=== PATIENT | female | born 1985 | race Caucasian/White ===

== ENCOUNTER 2017-02-04 08:14 | Inpatient (IN) | payer OTHER ==
[~2017-02-04] VITALS: Ht 175.3 cm; Wt 121.6 kg
[~2017-02-04 08:14] MED LIST: Docusate Sodium PO; ESOM20CA28 PO; FERR-74 PO; Ibuprofen PO; PREN-57 PO
[2017-02-04] MEDS ORDERED: Lactated Ringer's 1,000 ML IV SCH ×2 (08:36→13:23)
[2017-02-04] MEDS ORDERED: Lactated Ringer's 500 ML IV ONE (08:36)
[2017-02-04] MEDS ORDERED: Atropine 1 mg/10 mL (Code) Syringe IVPUSH PRN (08:40)
[2017-02-04] MEDS ORDERED: fentaNYL 2 mCg/mL-Bupiv 0.125% 100 ML EPIDURAL SCH (08:40)
[2017-02-04] MEDS ORDERED: EPHEDrine Sulfate 50 mg/mL Inj IVPUSH PRN (08:40)
[2017-02-04] MEDS ORDERED: Ondansetron 2 mg/mL 2 mL Inj IVPUSH PRN (08:40)
[2017-02-04] MEDS ORDERED: Oxytocin 30 Units/500 mL LR Premix IV ONE (08:54)
--- NOTE | 2017-02-04 09:12 | PCM.HPANE ---
Patient Data Date of Service: Feb 04, 2017 Surgeon Admitting Provider:Yovany Saeed MD Attending Provider:Yovany Saeed MD Primary Care Physician:Yovany Saeed MD Other Provider:Sharon Jacobson Anesthesia Reason for Visit LABOR LABOR Ht/WT & BMI Height (Centimeters): 175 Weight (Kilograms): 121 Body Mass Index Allergies Coded Allergies: No Known Allergies (Unverified Allergy, Unknown, 03/08/14) Past Anesthesia History Anesthesia History: Denies:: Abnormal Airway, Anesthesia Reactions, Difficult Intubation, Fam Anesthesia Reaction, Fam Malignant Hypertherm, Malignant Hyperthermia Diabetes History Hx Diabetes?: No MRSA MRSA: No Medications Hypertension Medication: No Home Meds Incl Beta Diego: No Active Scripts Ferrous Sulfate (Feosol)325 Mg [id number] Mg PO DAILY #14 TABLET Prov:Soniya Reddy MD 04/16/14 [Ibuprofen] (Motrin)800 MG TABLET No Conflict [id number] Mg PO Q6H PRN For Pain # 30 TABLET Ref 1 Prov:Soniya Reddy MD 04/16/14 [Docusate Sodium] (Colace)100 MG CAPSULE No Conflict [id number] Mg PO BID PRN For Constipation #28 CAPSULE Ref 1 Prov:Soniya Reddy MD 04/16/14 Reported Medications Esomeprazole Magnesium (Nexium)20 Mg Capsule.dr20 Mg PO DAILY 30 Days Ref 0 04/14/14 Pnv No.118/Iron Fumarate/FA ( 19 Chewable Tablet)1 Each Tab.chew1 Each PO 04/14/14 History History of ENT Problems?: No HEENT History: Denies:: Abnormal Airway Cataracts Difficult Intubation Dysphagia Glaucoma Hearing Problem Sinus Problem TMJ Denture Type: None Teeth Condition: Within Normal Limits Hx of Heart Problems?: No Cardiovascular History: Denies:: AICD Abdominal Aortic Aneurism Atrial Fibrillation Cardiac Surgery Chest Pain Congestive Heart Failure Coronary Artery Disease Edema Heart Murmur Hypertension Irregular Heartbeat Pacemaker Peripheral Vascular Rheumatic Fever Thrombophlebitis Valvular Heart Disease Hx of Respiratory Problem?: Yes Respiratory History: Positive for:: Asthma Denies:: Tuberculosis Hx Neurologic Problems?: No Neurological History: Denies:: Alzheimer's Disease CVA Dementia Dizziness Headaches Multiple Sclerosis Parkinson's Disease Peripheral Neuropathy Seizures TIA Hx of GI Problems?: No Gastrointestinal History: Denies:: Cirrhosis Diverticulitis Gall Bladder Disease Gastroesphageal Reflux Gastrointestinal Bleeding Heartburn Hepatitis Hiatal Hernia Liver Disease Rectal Bleeding Hx of Problems?: No Female Hx: Positive for:: Currently Hx Musculoskeletal Problems?: No Hx of Psycho/Social Problems?: Yes Psycho Social History: Positive for:: Hx Depression Hx Surgeries?: Yes (Knee surgery) Hx Any Other Health Problems?: Yes Other History: Positive for:: Thyroid Disease Hx Diabetes: No Hx Alcohol Use: NoHx Substance Use: No Smoking Status: Never Smoker Have You Smoked inLast 12 mo: No Stop/Bang Risk Assessment Category Category 1A: Patient has history of documented sleep apnea, and HAS NOT received any narcotic, sedative or anesthesia administration during this stay. Category 1B: Patient has history of documented sleep apnea, and HAS received any narcotic , sedative or anesthesia administration during this stay Category 2: Patient has SUSPECTED Obstructive Sleep Apnea, and HAS received any narcotic , sedative or anesthesia administration during this stay. Category 3: Patient has SUSPECTED Obstructive Sleep Apnea and HAS NOT received narcotic, sedative or anesthesia administration during this stay. Category 4: Outpatient in Procedural Areas with known sleep apnea or who screen positive for High Risk via the STOP/BANG questionnaire. Exam Exam General Appearance: Alert, Oriented X3, Cooperative, Mild Distress HEENT/AIRWAY: MP 2 Lungs: Normal Air Movement Heart: Exam Unremarkable Plan Impression Patient chart reviewed, patient interviewed and anesthestic plan with risks, benefits, and alternatives discussed, and informed consent obtained. ASA Physical Status: ASA2 Mod Systemic Disease Anesthetic Plan: Epidural Bene/Risks/Altern/Consents: Yes HP Complete Prior to Induction: Yes Avi Gordon MD Feb 04, 2017 09:12
[2017-02-04 09:56] LABS: Mean Corpuscular Volume 76.9 fL (81-100)
[2017-02-04] MEDS ORDERED: Bupivacaine-MPF 0.5% 30 mL Inj ONE (12:58)
[2017-02-04] MEDS ORDERED: Benzocaine (Dermoplast) 20% 60 Gm Spray TOPICAL PRN (13:25)
[2017-02-04] MEDS ORDERED: Methylergonovine 0.2 mg/mL Inj IM PRN (13:25)
[2017-02-04] MEDS ORDERED: Oxytocin 30 Units/500 mL LR 30 UNITS in IV Premix 1 EACH IV PRN (13:25)
[2017-02-04] MEDS ORDERED: HYDROcodone-APAP 5-325 mg Tablet PO PRN (13:25)
[2017-02-04] MEDS ORDERED: Influenza (Adult) Vaccine 0.5 mL Syringe IM ONE (13:25)
[2017-02-04] MEDS ORDERED: Oxytocin 10 Unit/mL Inj IM PRN (13:25)
[2017-02-04] MEDS ORDERED: Carboprost 250 mCg/mL Inj IM PRN (13:25)
[2017-02-04] MEDS ORDERED: Witch Hazel-Glycerin Pads TOPICAL PRN (13:25)
[2017-02-04] MEDS ORDERED: Hemorrhage Kit, Post Partum XX ONE (13:25)
[2017-02-04] MEDS ORDERED: LANOlin HPA 7 Gm Ointment TOPICAL PRN (13:25)
--- NOTE | 2017-02-04 14:05 | PCM.ANEP1 ---
Post Anesthesia PACU Phase 1 Assessment Date of Service: Feb 04, 2017 Vital Signs VSS see nurses notes Anesthetic Administered: Epidural Level of Alertness: Awake, talking ORTIZ's with Equal Strength: Yes Pain: No Nausea or Vomiting: No CV Function & Hydration Stable: Yes Airway Device: Oxygen Delivery: Room Air Lungs: Normal Air Movement PACU Phase 2 Assessment Complications: No Follow up Care: No Patient Instructions Provided: Yes Avi Gordon MD Feb 04, 2017 14:05
[2017-02-04] MEDS ORDERED: Sodium Chloride LOK Flush 10 mL Syringe IVFLUSH SCH (16:30)
--- NOTE | 2017-02-04 23:12 | PROCED ---
[address] [address] PROCEDURE NOTE PATIENT: TERESSA CLARK : 1985 MR#: [id number] ADMIT: 02/04/2017 JOB ID: [id number] DATE OF SERVICE: 02/04/2017 at 12:59 p.m. POSTOPERATIVE DIAGNOSIS(ES): PREOPERATIVE DIAGNOSIS(ES): SURGEON: Yovany Saeed MD This 32-year-old, G2, P2 female at 40 weeks and 3 days estimated gestational age delivered a 10 pound 4 ounce male by normal vaginal delivery. The Apgars were 8 and 9. The patient describes going into more active labor at 5:15 a.m. She presented here 1-2 hours later and by around 830 had had spontaneous rupture of membranes. Moderate meconium was noted. Peds was notified. The patient continued to contract over the next couple of hours and at 6 cm dilation I checked her and ruptured the back half of the amniotic sac which resulted again in more meconium. She had a large amount of fluid in total, however. The patient progressed relatively quickly to complete by about 12:20 p.m. At 1st, we labored her down for a few minutes and then got everything together to began pushing and she pushed just over a few minutes and was noted to be +2 station at which point, I was called. They had to wait approximately 10 minutes for my arrival and on my arrival, she started pushing and the baby immediately delivered. Of note is that the patient had received an epidural during the course of the morning. This was an excellent block in that it allowed her to push while still protecting her from the pain. The delivered without incident and without other complications. The infant immediately cried and had good tone and was delivered up onto the mom's abdomen. Delayed cord clamping was performed. Peds was present for delivery, but their services were not required other than observational given that everything went well. The cord was clamped and cut after about a minute and a half. The placenta delivered at 13:03. It was intact and delivered spontaneously with a three-vessel cord. The patient was noted to have a second degree midline vaginal tear which was repaired in the usual fashion using 3-0 Vicryl. No additional local anesthesia was necessary. The patient was in excellent condition following delivery and counts were correct x2.
[2017-02-05 06:57] LABS: Mean Corpuscular Hemoglobin 26.1 pg (27.0-35.0); Mean Corpuscular Volume 78.7 fL (81-100)
--- NOTE | 2017-02-05 08:51 | PCM.DC.OB ---
Obstetrical Discharge Summary Date of Service Feb 05, 2017 Date of hospital admission Feb 04, 2017 at 08:20 Date of Discharge: Feb 05, 2017 Providers Admitting Physician: Yovany Saeed MD Primary Care Physician: Yovany Saeed MD Attending Physician: Yovany Saeed MD Problems: (1) Status post normal vaginal delivery Status: Acute ICD Code: [id number] Consultations None Invasive procedures NVD Date of Procedure: Feb 04, 2017 Hospital Course: Patient presented and delivered with no complications. Recovered in excellent fashion. ([Docusate Sodium]) 100 MG CAPSULE 100 MG PO BID PRN PRN For Constipation Prescribed by: UMM JACOBSEN MD ([Ibuprofen]) 800 MG TABLET 600 MG PO Q6H PRN PRN For Pain Prescribed by: UMM JACOBSEN MD Esomeprazole Magnesium (Nexium) 20 Mg Capsule.dr 20 MG PO DAILY (Reported) Ferrous Sulfate (Feosol) 325 Mg Tablet 325 MG PO DAILY Prescribed by: UMM JACOBSEN MD Pnv No.118/Iron Fumarate/FA ( 19 Chewable Tablet) 1 Each Tab.chew 1 EACH PO (Reported) Follow-up plan See me in eight weeks Discharge Diet: No restrictions Discharge Activity-General: Pelvic Rest for 6 weeks, Try not to overdue, Be up and about, Activity as pain allows, Activity as energy allows, No lifting >15 pounds for 2 weeks Yovany Saeed MD Feb 05, 2017 08:51
--- NOTE | 2017-02-05 08:52 | PCM.DIOB ---
Obstetrical Disch Instruction Date of Service: Feb 05, 2017 Dates of Hospitalization Date of Hospital Admission Feb 04, 2017 at 08:20 Providers Admitting Physician: Yovany Saeed MD Primary Care Physician: Yovany Saeed MD Attending Physician: Yovany Saeed MD Discharge Diagnosis Problems: (1) Status post normal vaginal delivery Status: Acute ICD Code: [id number] Diet Discharge Diet: No restrictions Activity Discharge Activity-General: Pelvic Rest for 6 weeks, Be up and about, Balance rest and activity, Activity as pain allows, Activity as energy allows, No lifting >15 pounds for 2 weeks Dressing and Incisional Care Hygiene: May shower, Perineal care, Sitz bath, Dermoplast spray, Witch Lucero pads Follow Up Plan Follow-up Provider (F9): Yovany Saeed MD Follow-up appointment: Weeks (8) Call your provider for: Fever or Chills, Heavy vaginal bleeding, Vaginal discomfort, Red painful breasts Yovany Saeed MD Feb 05, 2017 08:52
== END 2017-02-05 14:10 | disposition home or self-care (01) | DRG 775 ==
LOC: FBCO 08:14 → FBC 08:20
PROVIDERS: ADMIT Family Medicine; ATTEND Family Medicine
PROC: 10E0XZZ Delivery of Products of Conception, External Approach (ICD-10-PCS; principal; 2017-02-04)
PROC: 0KQM0ZZ Repair Perineum Muscle, Open Approach (ICD-10-PCS; 2017-02-04)
DX: O70.1 Second degree perineal laceration during delivery (principal); Z37.0 Single live birth; Z3A.40 40 weeks gestation of pregnancy; O77.0 Labor and delivery complicated by meconium in amniotic fluid